=== PATIENT | female | born 1970 | race Two or more races ===

== ENCOUNTER 2019-04-12 10:50 | Emergency (ER) | payer OTHER ==
[~2019-04-12] VITALS: Ht 149.9 cm; Wt 61.2 kg
[~2019-04-12 10:50] MED LIST: CEFADROXIL500 MG PO; CEFTIN250 MG PO; DOLOGEN CAPLET1 EACH PO; INTAL20 MG/2 ML IH; KETO10TA2 PO; MUCINEX600 MG PO; NABUMETONE750 MG PO; NORFLEX100MG PO; PEPCID20 MG PO
[2019-04-12] MEDS ORDERED: LYRICA50 MG (11:43)
[2019-04-12] MEDS ORDERED: MOBIC7.5 M1 (11:43)
== END 2019-04-12 14:38 | disposition home or self-care (01) ==
LOC: ER 10:50
DX: M75.31 Calcific tendinitis of right shoulder (principal); M75.81 Other shoulder lesions, right shoulder

== ENCOUNTER 2020-03-25 16:44 | Emergency (ER) | payer OTHER ==
[~2020-03-25] VITALS: Ht 149.9 cm; Wt 54.4 kg
[~2020-03-25 16:44] MED LIST changes: +LYRICA50 MG; +MOBIC7.5 M1
[2020-03-25] MEDS ORDERED: MELOXICAM15 MG PO (17:10)
== END 2020-03-25 20:25 | disposition home or self-care (01) ==
LOC: ER 16:44
DX: J31.2 Chronic pharyngitis (principal); B34.9 Viral infection, unspecified

== ENCOUNTER → 2022-12-04 | Emergency (ER) | payer OTHER ==
[~2022-12-04] VITALS: Ht 165.1 cm; Wt 61.7 kg
[~2022-12-04] MED LIST changes: +MELOXICAM15 MG PO; +ONDANSETRON ODT8 MG PO; +PEPCID AC20 MG PO
== END | disposition home or self-care (01) ==
LOC: ER 11:20
DX: K29.70 Gastritis, unspecified, without bleeding (principal); I10 Essential (primary) hypertension; Z88.8 Allergy status to other drugs, medicaments and biological substances

== ENCOUNTER 2025-01-03 10:45 | Emergency (ER) | payer OTHER ==
[~2025-01-03] VITALS: Ht 152.4 cm; Wt 57.2 kg
[2025-01-03] MEDS ORDERED: CITRACAL-VIT D1 EACH (13:16)
[2025-01-03] MEDS ORDERED: NEURONTIN300 MG PO (13:16)
[2025-01-03] MEDS ORDERED: CYMBALTA60 MG PO (13:17)
[2025-01-03] MEDS ORDERED: CEFTRIAXONE SODIUM 1,000 MG VIAL IV ONE (13:45)
[2025-01-03] MEDS ORDERED: LEVALBUTEROL HCL 1.25 MG/3 ML SOLUTION IH ONE ×2 (13:45→16:06)
[2025-01-03] MEDS ORDERED: METHYLPREDNISOLONE SOD SUCC 125 MG VIAL IV ONE (13:45)
[2025-01-03] MEDS ORDERED: BENZONATATE 200 MG CAPSULE PO ONE (13:45)
[2025-01-03] MEDS ORDERED: FAMOtidine 10 MG/ML (4ML VIAL) IV ONE (13:45)
[2025-01-03 17:41] LABS: COVID-19 AG NEGATIVE (NEGATIVE); INFLUENZA A AG NEGATIVE (NEGATIVE)
[2025-01-03 17:55] LABS: ALBUMIN 4.1 gm/dL (3.4-5.0); BILIRUBIN TOTAL 0.38 mg/dL (0.3-1.2); CALCIUM 9.2 mg/dL (8.5-10.1); CREATININE SERUM 0.63 mg/dL (0.55-1.02); GFR 99.23; GLOBULINA 4.1 G/DL (2.4-3.5); POTASSIUM 4.24 mEq/L (3.5-5.1); TOTAL PROTEIN 8.2 gm/dL (6.4-8.2)
[2025-01-03 19:47] LABS: HEMATOCRIT 40.3 % (34.1-44.9); HEMOGLOBIN 13.4 g/dL (11.2-15.7); MEAN CORPUSCULAR HEMOGLOBIN 28.6 pg (25.6-32.2); PLATELET COUNT 356 K/uL (163-369); RED BLOOD COUNT 4.69 M/uL (3.93-5.22)
[2025-01-03 19:48] LABS: BASO % 0.5 % (0.1-1.2); EOS % 5.3 % (0.7-7.0); LYMPH % 33.9 % (19.3-53.1); MONO % 9.3 % (4.7-12.5); NEUT % 50.7 % (34.0-71.1)
[2025-01-03 19:49] LABS: LYMPH # 2.56 (1.18-3.74); NEUT # 3.84 (1.56-6.13)
[2025-01-03] MEDS ORDERED: BUDESONIDE0.5 MG/2 M IH (20:02)
[2025-01-03] MEDS ORDERED: ALBUTEROL2.5 MG/3 M IH (20:02)
== END 2025-01-03 22:30 | disposition home or self-care (01) ==
LOC: ER 10:45
PROVIDERS: General Practice
DX: J45.901 Unspecified asthma with (acute) exacerbation (principal); R05.9 Cough, unspecified; Z20.822 Contact with and (suspected) exposure to COVID-19; Z91.011 Allergy to milk products